=== PATIENT | female | born 1980 | race Caucasian/White ===

== ENCOUNTER 2016-12-08 08:03 | Emergency (ER) | payer MEDICAID ==
[~2016-12-08] VITALS: Ht 170.2 cm; Wt 77.1 kg
[~2016-12-08 08:03] MED LIST: ATEN-166
[2016-12-08 08:08] VITALS: BP_SYST 129
[2016-12-08] MEDS ORDERED: NACL 0.9% 1,000 ML IV ONE (08:28)
[2016-12-08] MEDS ORDERED: ONDANSETRON HCL 4 MG/2 ML VIAL IVP ONE (08:30)
[2016-12-08] MEDS ORDERED: MAG-AL HYDROX/SIMETH 30 ML UDC PO ONE (08:45)
[2016-12-08] MEDS ORDERED: BELLADONNA ALKALOIDS/PHENOBARB 5 ML UDC PO ONE (08:45)
[2016-12-08] MEDS ORDERED: LIDOCAINE VISCOUS 2%, 15 ML UDC MM ONE (08:45)
[2016-12-08 09:00] LABS: BASOPHILS % (AUTO) 0.6 % (0.0-2.0); EOSINOPHILS # (AUTO) 0.1 K/uL (0.0-0.4); EOSINOPHILS % (AUTO) 0.7 % (0.0-4.0); HEMATOCRIT 40.9 % (36-48); HEMOGLOBIN 13.5 g/dL (12.0-16.0); LYMPHOCYTES # (AUTO) 1.2 K/uL (1.0-5.5); LYMPHOCYTES % (AUTO) 16.2 % (20.5-51.5); MEAN CORPUSCULAR HEMOGLOBIN 31 pg (27-31); MEAN CORPUSCULAR HGB CONC 33 % (32-36); MEAN CORPUSCULAR VOLUME 94 fL (79.0-98.0); MONOCYTES # (AUTO) 0.5 K/uL (0.0-1.0); MONOCYTES % (AUTO) 6.3 % (1.7-9.3); NEUTROPHILS # (AUTO) 5.9 K/uL (1.8-7.7); NEUTROPHILS % (AUTO) 76.2 % (40.0-70.0); PLATELET COUNT (AUTO) 255 K/uL (130-430); RED BLOOD CELL COUNT(AUTO) 4.35 MIL/uL (4.2-6.2); RED CELL DISTRIBUTION WIDTH 11.7 % (9.0-15.0); WHITE BLOOD COUNT (AUTO) 7.7 K/uL (4.8-10.8)
[2016-12-08 09:09] LABS: CALCIUM 8.8 mg/dL (8.4-11.0); CREATININE 0.89 mg/dL (0.55-1.30); POTASSIUM 3.5 mmol/L (3.5-5.1)
[2016-12-08 09:13] LABS: BILIRUBIN,URINE 1+ (NEGATIVE); BLOOD, URINE 3+ (NEGATIVE); CLARITY/URINE HAZY (CLEAR); COLOR,URINE YELLOW (YELLOW); GLUCOSE,URINE NEGATIVE (NEGATIVE); KETONES,URINE TRACE (NEGATIVE); LEUKOCYTE ESTERASE ,URINE TRACE (NEGATIVE); NITRITE, URINE NEGATIVE (NEGATIVE); PH,URINE 5.5 (5.0-8.0); PROTEIN URINE TRACE (NEGATIVE); UROBILINOGEN,URINE 0.2 (0.2-1.0)
[2016-12-08 09:14] LABS: TOTAL BILIRUBIN 1.7 mg/dL (0.0-1.0)
[2016-12-08 09:26] LABS: BACTERIA,URINE MANY /HPF (None Seen); MUCUS,URINE 1+ /LPF (None Seen); RBC,URINE 20-50 /HPF (0-3)
[2016-12-08 10:04] VITALS: BP_SYST 121
== END 2016-12-08 10:04 | disposition home or self-care (01) ==
LOC: SED 08:03
DX: K52.9 Noninfective gastroenteritis and colitis, unspecified (principal); N39.0 Urinary tract infection, site not specified; I10 Essential (primary) hypertension; Z88.1 Allergy status to other antibiotic agents; Z88.6 Allergy status to analgesic agent
CPT/HCPCS: 36415; 80053; 81000; 81025; 83605; 83690; 85025; 87040; 87086; 93005; 96361; 96374; 99285; J2001; J2405; J7030

== ENCOUNTER 2017-01-12 20:06 | Emergency (ER) | payer MEDICAID ==
[~2017-01-12] VITALS: Ht 170.2 cm; Wt 81.6 kg
[2017-01-12 20:20] VITALS: BP_SYST 158
--- NOTE | 2017-01-12 20:34 | NUR ---
Patient to ER bed 8 to gown for evaluation. Side rails up. Report given to Ursula FOX.
--- NOTE | 2017-01-12 20:38 | NUR ---
ER HENRI Garces at bedside evaluating the patient
[2017-01-12] MEDS ORDERED: IBUPROFEN 800 MG TABLET PO ONE ×2 (20:45→21:00)
[2017-01-12] MEDS ORDERED: BACITRACIN 1 GM OINT TP ONE (20:45)
[2017-01-12] MEDS ORDERED: DIPH-TET-PERTUS Vaccine 0.5 ML VIAL (ADACEL) IM ONE (20:45)
[2017-01-12] MEDS ORDERED: LIDOCAINE 2%, 20 ML MDV IJ ONE (20:45)
--- NOTE | 2017-01-12 20:45 | NUR ---
Patient to ER C/O laceration for left hand 5th finger distal phalange and right hand 2nd finger middle phalange, aprox 1 cm both sites. No bleeding noted. 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 No other signs of injury or trauma. AAOx4, unlabored breathing, no signs of acute distress.
--- NOTE | 2017-01-12 21:46 | NUR ---
Patient has a 1cm laceration to left distal 5th finger and right hand 2nd finger 1cm laceration. OPTOMETRIST ASSISTANT Leah Pardo applied sutures using sterile technique. Edges well approximated. Site cleansed with NS & iodine. Dressing of gauze applied to site. No bleeding noted. Pt tolerated well.
[2017-01-12 22:21] VITALS: BP_SYST 131
--- NOTE | 2017-01-12 22:21 | NUR ---
Patient given written and verbal discharge instructions and verbalizes understanding. ER FORTUNE TELLER Edvin Garces discussed with patient the results and treatment provided. Patient in stable condition. ID arm band removed. Rx of bacitracin & motrin given. Patient educated on pain management and to follow up with PMD. Pain Scale 0/10. Opportunity for questions provided and answered.
== END 2017-01-12 22:21 | disposition home or self-care (01) ==
LOC: SED 20:06
DX: S61.217A Laceration without foreign body of left little finger without damage to nail, initial encounter (principal); S61.210A Laceration without foreign body of right index finger without damage to nail, initial encounter; I10 Essential (primary) hypertension; Z88.1 Allergy status to other antibiotic agents; Z88.5 Allergy status to narcotic agent; X58.XXXA Exposure to other specified factors, initial encounter; Y93.89 Activity, other specified; Y92.89 Other specified places as the place of occurrence of the external cause; Y99.8 Other external cause status
CPT/HCPCS: 12001; 90471; 90715; 99284; J2001

== ENCOUNTER 2017-03-07 17:17 | Emergency (ER) | payer MEDICAID ==
[~2017-03-07] VITALS: Ht 170.2 cm; Wt 83.9 kg
[~2017-03-07 17:17] MED LIST changes: +ASPI-1063 PO; -ATEN-166; +ATEN-166 PO; +DILT30TA36 PO
[2017-03-07 17:25] VITALS: BP_SYST 146
[2017-03-07 18:06] LABS: BILIRUBIN,URINE NEGATIVE (NEGATIVE); BLOOD, URINE NEGATIVE (NEGATIVE); CLARITY/URINE CLEAR (CLEAR); COLOR,URINE YELLOW (YELLOW); GLUCOSE,URINE NEGATIVE (NEGATIVE); KETONES,URINE NEGATIVE (NEGATIVE); LEUKOCYTE ESTERASE ,URINE NEGATIVE (NEGATIVE); NITRITE, URINE NEGATIVE (NEGATIVE); PH,URINE 5.5 (5.0-8.0); PROTEIN URINE NEGATIVE (NEGATIVE); UROBILINOGEN,URINE 0.2 (0.2-1.0)
[2017-03-07 18:29] LABS: BASOPHILS # (AUTO) 0.1 K/uL (0.0-0.2); BASOPHILS % (AUTO) 0.7 % (0.0-2.0); EOSINOPHILS # (AUTO) 0.1 K/uL (0.0-0.4); EOSINOPHILS % (AUTO) 0.7 % (0.0-4.0); HEMATOCRIT 41.8 % (36-48); LYMPHOCYTES # (AUTO) 1.4 K/uL (1.0-5.5); LYMPHOCYTES % (AUTO) 13.9 % (20.5-51.5); MEAN CORPUSCULAR HEMOGLOBIN 32 pg (27-31); MEAN CORPUSCULAR HGB CONC 34 % (32-36); MEAN CORPUSCULAR VOLUME 94 fL (79.0-98.0); MONOCYTES # (AUTO) 0.4 K/uL (0.0-1.0); MONOCYTES % (AUTO) 4.3 % (1.7-9.3); NEUTROPHILS # (AUTO) 8.1 K/uL (1.8-7.7); NEUTROPHILS % (AUTO) 80.4 % (40.0-70.0); PLATELET COUNT (AUTO) 268 K/uL (130-430); RED BLOOD CELL COUNT(AUTO) 4.46 MIL/uL (4.2-6.2); RED CELL DISTRIBUTION WIDTH 11.4 % (9.0-15.0); WHITE BLOOD COUNT (AUTO) 10.1 K/uL (4.8-10.8)
[2017-03-07 18:35] LABS: CALCIUM 10.1 mg/dL (8.4-11.0); CREATININE 0.8 mg/dL (0.55-1.30); POTASSIUM 3.5 mmol/L (3.5-5.1)
[2017-03-07 18:39] LABS: ALBUMIN 4.2 g/dL (3.4-4.8); TOTAL BILIRUBIN 0.9 mg/dL (0.0-1.0)
[2017-03-07] MEDS ORDERED: KETOROLAC TROMETHAMINE 60 MG/2 ML VIAL IM ONE (19:00)
[2017-03-07 20:35] VITALS: BP_SYST 143
== END 2017-03-07 20:35 | disposition home or self-care (01) ==
LOC: SED 17:17
DX: K57.90 Diverticulosis of intestine, part unspecified, without perforation or abscess without bleeding (principal); I10 Essential (primary) hypertension; Z88.1 Allergy status to other antibiotic agents; Z88.5 Allergy status to narcotic agent; Z86.79 Personal history of other diseases of the circulatory system; Z79.82 Long term (current) use of aspirin
CPT/HCPCS: 36415; 74176; 80053; 81003; 81025; 83690; 85025; 96372; 99285; J1885

== ENCOUNTER 2017-03-09 10:25 | Emergency (ER) | payer MEDICAID ==
[~2017-03-09] VITALS: Ht 170.2 cm; Wt 83.9 kg
[2017-03-09 10:32] VITALS: BP_SYST 149
--- NOTE | 2017-03-09 10:45 | NUR ---
PT AAOX4, ABLE TO VERBALIZE NEEDS. PT STATES SHE HAS HAD R LOWER PELVIC PAIN SINCE THURSDAY, CAME INTO ED ON THURSDAY AND WAS TOLD TO COME BACK IF PAIN GETS WORSE PER PT. PT STATES SHE WAS GIVEN MOTRIN PRESCRIPTION, HAS HELPED MINIMALLY WITH PAIN. PT STATES PAIN IS 7/10 SHARP, ACHING AT THIS TIME. PT STATES LAST PERIOD BEGAN 02/28/17 AND HAD SOME CLOTS, BUT NORMAL FOR HER PER PT. PT HAS HX OF ENDOMETRIOSIS. NO OTHER COMPLAINTS/INJURIES PER PT OR NOTED.
--- NOTE | 2017-03-09 10:55 | NUR ---
ER at bedside examining patient.
[2017-03-09] MEDS ORDERED: ONDANSETRON HCL 4 MG/2 ML VIAL IVP ONE (11:00)
[2017-03-09] MEDS ORDERED: MORPHINE SULFATE 10 MG/ML VIAL IVP ONE (11:00)
[2017-03-09 11:05] LABS: BASOPHILS # (AUTO) 0.1 K/uL (0.0-0.2); BASOPHILS % (AUTO) 0.7 % (0.0-2.0); EOSINOPHILS # (AUTO) 0.1 K/uL (0.0-0.4); EOSINOPHILS % (AUTO) 0.9 % (0.0-4.0); HEMATOCRIT 39.3 % (36-48); HEMOGLOBIN 13.5 g/dL (12.0-16.0); LYMPHOCYTES # (AUTO) 1.7 K/uL (1.0-5.5); LYMPHOCYTES % (AUTO) 22.5 % (20.5-51.5); MEAN CORPUSCULAR HEMOGLOBIN 32 pg (27-31); MEAN CORPUSCULAR HGB CONC 34 % (32-36); MEAN CORPUSCULAR VOLUME 93 fL (79.0-98.0); MONOCYTES # (AUTO) 0.5 K/uL (0.0-1.0); MONOCYTES % (AUTO) 6.4 % (1.7-9.3); NEUTROPHILS # (AUTO) 5.1 K/uL (1.8-7.7); NEUTROPHILS % (AUTO) 69.5 % (40.0-70.0); PLATELET COUNT (AUTO) 248 K/uL (130-430); RED BLOOD CELL COUNT(AUTO) 4.21 MIL/uL (4.2-6.2); RED CELL DISTRIBUTION WIDTH 11.3 % (9.0-15.0); WHITE BLOOD COUNT (AUTO) 7.5 K/uL (4.8-10.8)
[2017-03-09] MEDS: NACL 0.9% 1,000 ML IV ONE (11:15)
[2017-03-09] MEDS: KETOROLAC TROMETHAMINE 30 MG VIAL IVP ONE (11:16)
[2017-03-09 11:18] LABS: BILIRUBIN,URINE NEGATIVE (NEGATIVE); BLOOD, URINE NEGATIVE (NEGATIVE); CLARITY/URINE CLEAR (CLEAR); COLOR,URINE YELLOW (YELLOW); GLUCOSE,URINE NEGATIVE (NEGATIVE); KETONES,URINE NEGATIVE (NEGATIVE); LEUKOCYTE ESTERASE ,URINE NEGATIVE (NEGATIVE); NITRITE, URINE NEGATIVE (NEGATIVE); PH,URINE 5.5 (5.0-8.0); PROTEIN URINE NEGATIVE (NEGATIVE); UROBILINOGEN,URINE 0.2 (0.2-1.0)
[2017-03-09 11:22] LABS: CREATININE 0.79 mg/dL (0.55-1.30); POTASSIUM 3.6 mmol/L (3.5-5.1)
[2017-03-09 11:25] LABS: INR 1.1 (0.8-1.2); PROTHROMBIN TIME 10.7 SECS (9.5-12.5)
[2017-03-09 11:26] LABS: ALBUMIN 3.9 g/dL (3.4-4.8)
[2017-03-09] MEDS ORDERED: IOHEXOL 100 ML IV ONE (11:38)
--- NOTE | 2017-03-09 11:50 | NUR ---
PT TAKEN OFF UNIT FOR CT.
--- NOTE | 2017-03-09 12:36 | NUR ---
Pt resting comfortably in hospital bed. No acute distress. Will continue to monitor.
--- NOTE | 2017-03-09 13:36 | NUR ---
Pt went to ultrasound in stable condition.
--- NOTE | 2017-03-09 13:56 | NUR ---
Pt returned from ultrasound in stable condition.
--- NOTE | 2017-03-09 14:29 | NUR ---
Pt resting in hospital bed. No acute distress, will continue to monitor.
--- NOTE | 2017-03-09 15:25 | NUR ---
Patient given written and verbal discharge instructions and verbalizes understanding. ER MD discussed with patient the results and treatment provided. Patient in stable condition. ID arm band removed. IV catheter removed intact and dressing applied, no active bleeding. Rx of tramadol. tylenol, zofran given. Patient educated on pain management and to follow up with PMD. Pain Scale 0. Opportunity for questions provided and answered.
[2017-03-09 15:28] VITALS: BP_SYST 149
== END 2017-03-09 15:25 | disposition home or self-care (01) ==
LOC: SED 10:25
DX: R10.31 Right lower quadrant pain (principal); I10 Essential (primary) hypertension; Z86.79 Personal history of other diseases of the circulatory system; Z88.1 Allergy status to other antibiotic agents; Z88.5 Allergy status to narcotic agent; Z79.82 Long term (current) use of aspirin
CPT/HCPCS: 36415; 74177; 76830; 76857; 80053; 81003; 83690; 84703; 85025; 85610; 85730; 96361; 96374; 99285; J1885; J7030; Q9967

== ENCOUNTER 2018-02-23 08:09 | Emergency (ER) | payer MEDICAID ==
[~2018-02-23] VITALS: Ht 170.2 cm; Wt 83.9 kg
[~2018-02-23 08:09] MED LIST changes: -ASPI-1063 PO; +ASPI-1153 PO
[2018-02-23 08:12] VITALS: BP_SYST 153
[2018-02-23 09:07] VITALS: BP_SYST 153
== END 2018-02-23 09:07 | disposition home or self-care (01) ==
LOC: SED 08:09
DX: J06.9 Acute upper respiratory infection, unspecified (principal); I10 Essential (primary) hypertension; Z86.79 Personal history of other diseases of the circulatory system; Z88.1 Allergy status to other antibiotic agents; Z88.5 Allergy status to narcotic agent; Z79.82 Long term (current) use of aspirin; Z79.899 Other long term (current) drug therapy
CPT/HCPCS: 36415; 71045; 86710; 99284

== ENCOUNTER 2019-10-01 14:50 | Emergency (ER) | payer MEDICAID ==
[~2019-10-01] VITALS: Ht 167.6 cm; Wt 72.6 kg
[2019-10-01 14:55] VITALS: BP_SYST 153
--- NOTE | 2019-10-01 15:00 | NUR ---
Placed in room 3. Placed on nuclear monitoring technician, blood pressure machine and pulse oximeter. To gown for exam. Side rails up. Report given to RUDDY Gee.
--- NOTE | 2019-10-01 15:05 | NUR ---
Pt walked in to ER with c/o heart fluttering and chest tightness, denies any pain at this time. V/S stable, pt is afebrile. Currently resting in bed, will continue to monitor.
--- NOTE | 2019-10-01 15:10 | NUR ---
EKG performed at BS by EMT. Physician given copy of EKG for review.
--- NOTE | 2019-10-01 15:12 | NUR ---
ER Dr. Sevilla at bedside examining patient.
[2019-10-01] MEDS ORDERED: ASPIRIN 81 MG TAB.CHEW PO ONE (15:15)
--- NOTE | 2019-10-01 15:35 | NUR ---
# 20 gauge angiocath placed to LAC. Use of asceptic technique. Opsite placed over site. Blood return noted. Blood for lab drawn from site. Flushed with 10 cc of normal saline. No evidence of infiltration noted. Patient tolerated well.
[2019-10-01 15:46] LABS: BASOPHILS # (AUTO) 0.1 K/uL (0.0-0.2); HEMATOCRIT 41.6 % (36-48); LYMPHOCYTES % (AUTO) 9.2 % (20.5-51.5); MEAN CORPUSCULAR HEMOGLOBIN 31 pg (27-31); MEAN CORPUSCULAR HGB CONC 34 % (32-36); MEAN CORPUSCULAR VOLUME 93 fL (79.0-98.0); MONOCYTES # (AUTO) 0.2 K/uL (0.0-1.0); MONOCYTES % (AUTO) 2.2 % (1.7-9.3); NEUTROPHILS # (AUTO) 9.1 K/uL (1.8-7.7); NEUTROPHILS % (AUTO) 87.6 % (40.0-70.0); PLATELET COUNT (AUTO) 287 K/uL (130-430); RED BLOOD CELL COUNT(AUTO) 4.49 MIL/uL (4.2-6.2); RED CELL DISTRIBUTION WIDTH 12.1 % (9.0-15.0); WHITE BLOOD COUNT (AUTO) 10.3 K/uL (4.8-10.8)
[2019-10-01 15:59] LABS: CALCIUM 9.5 mg/dL (8.4-11.0); CREATININE 0.93 mg/dL (0.55-1.30)
[2019-10-01 16:05] LABS: ALBUMIN 3.8 g/dL (3.4-4.8); TOTAL BILIRUBIN 0.5 mg/dL (0.0-1.0)
[2019-10-01 16:30] VITALS: BP_SYST 153
--- NOTE | 2019-10-01 16:30 | NUR ---
Patient given written and verbal discharge instructions and verbalizes understanding. ER MD discussed with patient the results and treatment provided. Patient in stable condition. ID arm band removed. IV catheter removed intact and dressing applied, no active bleeding. No prescriptions given. Patient educated on pain management and to follow up with PMD. Pain Scale 0. Opportunity for questions provided and answered. Medication side effect fact sheet provided.
== END 2019-10-01 16:30 | disposition home or self-care (01) ==
LOC: SED 14:50
DX: R00.2 Palpitations (principal); I10 Essential (primary) hypertension; Z86.73 Personal history of transient ischemic attack (TIA), and cerebral infarction without residual deficits; Z79.899 Other long term (current) drug therapy; Z79.82 Long term (current) use of aspirin; Z88.1 Allergy status to other antibiotic agents; Z88.6 Allergy status to analgesic agent
CPT/HCPCS: 36415; 71045; 80053; 81025; 84484; 85025; 93005; 99285

== ENCOUNTER 2020-02-29 06:58 | Emergency (ER) | payer MEDICAID ==
[~2020-02-29] VITALS: Ht 167.6 cm; Wt 90.7 kg
[~2020-02-29 06:58] MED LIST changes: -ASPI-1153 PO; +ASPI-1393 PO
[2020-02-29 07:00] VITALS: BP_SYST 147
--- NOTE | 2020-02-29 07:00 | NUR ---
PT FOUND IN TRIAGE BATHROOM VOMITING, ASSISTED TO WHEELCHAIR AND BROUGHT BACK TO BED #7, PT STATES SHE AWOKE WITH RIGHT LOWER QUADRANT PAIN, +NAUSEA AND VOMITING, +DIARRHEA. PAIN IS WORSE THAN WHEN SHE HAD AN OVARIAN CYST. PT UNABLE TO WALK STRAIGHT UP, UNABLE TO SIT ON GURNEY. TRIAGED IN ROOM #7
--- NOTE | 2020-02-29 07:20 | NUR ---
REPORT GIVEN TO ISRAEL MARCUM REQUESTED AN BEDSIDE COMMODE TO ROOM, BEDSIDE COMMODE PLACED IN ROOM PER REQUEST.
--- NOTE | 2020-02-29 07:58 | NUR ---
Pt walked in to ER with c/o abdominal pain 11/18, n/v since early this morning. No fever at this time. V/S stable.
--- NOTE | 2020-02-29 08:10 | NUR ---
ER Dr. Florez at bedside examining patient.
[2020-02-29] MEDS ORDERED: NACL 0.9% 1,000 ML IV ONE (08:15)
[2020-02-29] MEDS ORDERED: KETOROLAC TROMETHAMINE 30 MG VIAL IVP ONE (08:15)
--- NOTE | 2020-02-29 08:15 | NUR ---
# 20 gauge angiocath placed to RAC. Use of asceptic technique. Opsite placed over site. Blood return noted. Blood for lab drawn from site. Flushed with 10 cc of normal saline. No evidence of infiltration noted. Patient tolerated well.
[2020-02-29] MEDS ORDERED: ONDANSETRON HCL 4 MG/2 ML VIAL ONE (08:19)
[2020-02-29 08:28] LABS: BASOPHILS # (AUTO) 0.1 K/uL (0.0-0.2); BASOPHILS % (AUTO) 0.7 % (0.0-2.0); EOSINOPHILS % (AUTO) 0.4 % (0.0-4.0); HEMATOCRIT 38.7 % (36-48); LYMPHOCYTES # (AUTO) 1.5 K/uL (1.0-5.5); LYMPHOCYTES % (AUTO) 13.1 % (20.5-51.5); MEAN CORPUSCULAR HEMOGLOBIN 31 pg (27-31); MEAN CORPUSCULAR HGB CONC 34 % (32-36); MEAN CORPUSCULAR VOLUME 92 fL (79.0-98.0); MONOCYTES # (AUTO) 0.4 K/uL (0.0-1.0); MONOCYTES % (AUTO) 3.7 % (1.7-9.3); NEUTROPHILS # (AUTO) 9.5 K/uL (1.8-7.7); NEUTROPHILS % (AUTO) 82.1 % (40.0-70.0); PLATELET COUNT (AUTO) 263 K/uL (130-430); RED BLOOD CELL COUNT(AUTO) 4.18 MIL/uL (4.2-6.2); RED CELL DISTRIBUTION WIDTH 12.5 % (9.0-15.0); WHITE BLOOD COUNT (AUTO) 11.6 K/uL (4.8-10.8)
[2020-02-29] MEDS ORDERED: ONDANSETRON HCL 4 MG/2 ML VIAL IVP ONE ×2 (08:30→10:15)
[2020-02-29 08:38] LABS: CALCIUM 8.8 mg/dL (8.4-11.0); CREATININE 0.86 mg/dL (0.55-1.30); POTASSIUM 3.5 mmol/L (3.5-5.1)
--- NOTE | 2020-02-29 08:41 | NUR ---
Patient transported to radiology via wheelchair, accompanied by staff.
[2020-02-29 08:42] LABS: ALBUMIN 3.7 g/dL (3.4-4.8); TOTAL BILIRUBIN 0.6 mg/dL (0.0-1.0)
[2020-02-29] MEDS ORDERED: traMADol HCL HCL 50 MG TABLET (ULTRAM) PO ONE (10:15)
[2020-02-29] MEDS ORDERED: traMADol HCL HCL 50 MG TABLET (ULTRAM) ONE (10:15)
[2020-02-29 10:41] VITALS: BP_SYST 147
--- NOTE | 2020-02-29 10:42 | NUR ---
Patient given written and verbal discharge instructions and verbalizes understanding. ER MD discussed with patient the results and treatment provided. Patient in stable condition. ID arm band removed. IV catheter removed intact and dressing applied, no active bleeding. Rx of Motrin, Zofran and Tramadol given. Patient educated on pain management and to follow up with PMD. Pain Scale 0. Opportunity for questions provided and answered. Medication side effect fact sheet provided.
== END 2020-02-29 10:42 | disposition home or self-care (01) ==
LOC: SED 06:58
DX: N23 Unspecified renal colic (principal); I10 Essential (primary) hypertension; Z86.73 Personal history of transient ischemic attack (TIA), and cerebral infarction without residual deficits; Z79.899 Other long term (current) drug therapy; Z79.82 Long term (current) use of aspirin; Z88.1 Allergy status to other antibiotic agents; Z88.6 Allergy status to analgesic agent
CPT/HCPCS: 36415; 74176; 76376; 83690; 80053; 85025; 96361; 96374; 96375; 96376; 99284; J1885; J2405; J7030

== ENCOUNTER 2020-05-05 22:43 | Emergency (ER) | payer MEDICAID ==
[~2020-05-05] VITALS: Ht 170.2 cm; Wt 90.7 kg
[2020-05-05 22:50] VITALS: BP_SYST 157
[2020-05-06 00:02] LABS: BASOPHILS # (AUTO) 0.1 K/uL (0.0-0.2); BASOPHILS % (AUTO) 0.8 % (0.0-2.0); EOSINOPHILS # (AUTO) 0.2 K/uL (0.0-0.4); EOSINOPHILS % (AUTO) 2.6 % (0.0-4.0); HEMATOCRIT 38.5 % (36-48); HEMOGLOBIN 12.9 g/dL (12.0-16.0); LYMPHOCYTES # (AUTO) 2.5 K/uL (1.0-5.5); LYMPHOCYTES % (AUTO) 29.7 % (20.5-51.5); MEAN CORPUSCULAR HEMOGLOBIN 31 pg (27-31); MEAN CORPUSCULAR HGB CONC 34 % (32-36); MEAN CORPUSCULAR VOLUME 92 fL (79.0-98.0); MONOCYTES # (AUTO) 0.7 K/uL (0.0-1.0); MONOCYTES % (AUTO) 8.4 % (1.7-9.3); NEUTROPHILS # (AUTO) 4.9 K/uL (1.8-7.7); NEUTROPHILS % (AUTO) 58.5 % (40.0-70.0); PLATELET COUNT (AUTO) 233 K/uL (130-430); RED BLOOD CELL COUNT(AUTO) 4.18 MIL/uL (4.2-6.2); RED CELL DISTRIBUTION WIDTH 12.1 % (9.0-15.0); WHITE BLOOD COUNT (AUTO) 8.3 K/uL (4.8-10.8)
[2020-05-06 00:19] LABS: CALCIUM 8.8 mg/dL (8.4-11.0); CREATININE 0.94 mg/dL (0.55-1.30); POTASSIUM 3.1 mmol/L (3.5-5.1)
[2020-05-06 00:24] LABS: ALBUMIN 3.7 g/dL (3.4-4.8); TOTAL BILIRUBIN 0.5 mg/dL (0.0-1.0)
[2020-05-06] MEDS ORDERED: POTASSIUM CHLORIDE 20 MEQ TAB.PRT.SR PO ONE (00:45)
[2020-05-06] MEDS ORDERED: LORazepam 2 MG/ML VIAL IM ONE (02:30)
[2020-05-06 02:42] VITALS: BP_SYST 156
== END 2020-05-06 02:43 | disposition home or self-care (01) ==
LOC: SED 22:43
DX: R20.2 Paresthesia of skin (principal); E87.6 Hypokalemia; I10 Essential (primary) hypertension; N28.9 Disorder of kidney and ureter, unspecified; Z79.899 Other long term (current) drug therapy; Z79.82 Long term (current) use of aspirin; Z88.6 Allergy status to analgesic agent; Z88.1 Allergy status to other antibiotic agents
CPT/HCPCS: 36415; 71045; 80053; 84484; 85025; 93005; 99285

== ENCOUNTER 2020-08-10 20:51 | Emergency (ER) | payer MEDICAID ==
[~2020-08-10] VITALS: Ht 165.1 cm; Wt 93.0 kg
--- NOTE | 2020-08-10 20:58 | NUR ---
Placed in room 02 . Placed on pvc monitor, blood pressure machine and pulse oximeter. To gown for exam. Side rails up.
[2020-08-10 20:59] VITALS: BP_SYST 161
--- NOTE | 2020-08-10 21:10 | NUR ---
Pt walked in from home c/o 05/19 intermittent mid sternal chest pain that started since thursday. Pt reports some SOB, dizziness, feeling symptoms of anxiety. Was told to come into ER by her groundman/lineman.
--- NOTE | 2020-08-10 21:20 | NUR ---
Dr. Su at bedside for MSE.
[2020-08-10 21:39] LABS: BASOPHILS % (AUTO) 0.4 % (0.0-2.0); EOSINOPHILS # (AUTO) 0.1 K/uL (0.0-0.4); EOSINOPHILS % (AUTO) 0.8 % (0.0-4.0); HEMATOCRIT 37.3 % (36-48); HEMOGLOBIN 12.5 g/dL (12.0-16.0); LYMPHOCYTES # (AUTO) 3.1 K/uL (1.0-5.5); LYMPHOCYTES % (AUTO) 26.6 % (20.5-51.5); MEAN CORPUSCULAR HEMOGLOBIN 31 pg (27-31); MEAN CORPUSCULAR HGB CONC 34 % (32-36); MEAN CORPUSCULAR VOLUME 92 fL (79.0-98.0); MONOCYTES # (AUTO) 0.9 K/uL (0.0-1.0); MONOCYTES % (AUTO) 7.3 % (1.7-9.3); NEUTROPHILS # (AUTO) 7.6 K/uL (1.8-7.7); NEUTROPHILS % (AUTO) 64.9 % (40.0-70.0); PLATELET COUNT (AUTO) 254 K/uL (130-430); RED BLOOD CELL COUNT(AUTO) 4.06 MIL/uL (4.2-6.2); RED CELL DISTRIBUTION WIDTH 12.1 % (9.0-15.0); WHITE BLOOD COUNT (AUTO) 11.7 K/uL (4.8-10.8)
[2020-08-10 21:44] LABS: CALCIUM 8.9 mg/dL (8.4-11.0); CREATININE 0.97 mg/dL (0.55-1.30); POTASSIUM 3.3 mmol/L (3.5-5.1)
[2020-08-10] MEDS ORDERED: METOPROLOL TARTRATE 5 MG/5 ML VIAL IVP ONE ×2 (21:45→22:15)
[2020-08-10 21:50] LABS: ALBUMIN 3.5 g/dL (3.4-4.8); TOTAL BILIRUBIN 0.5 mg/dL (0.0-1.0)
[2020-08-10] MEDS ORDERED: ONDANSETRON HCL 4 MG/2 ML VIAL ONE (22:27)
[2020-08-10] MEDS ORDERED: ONDANSETRON HCL 4 MG/2 ML VIAL IVP ONE (22:30)
--- NOTE | 2020-08-10 22:45 | NUR ---
Patient resting quietly. No acute distress noted.
[2020-08-10] MEDS ORDERED: POTASSIUM CHLORIDE 20 MEQ TAB.PRT.SR PO ONE (23:00)
[2020-08-10] MEDS ORDERED: NACL 0.9% 1,000 ML IV ONE (23:00)
[2020-08-10] MEDS ORDERED: POTASSIUM CHLORIDE 20 MEQ TAB.PRT.SR ONE (23:18)
[2020-08-10] MEDS ORDERED: METO25TA6 PO (23:52)
[2020-08-11] MEDS ORDERED: METO25TA6 PO ×2
--- NOTE | 2020-08-11 | NUR ---
Patient resting quietly. No acute distress noted. Vital signs within normal range.
[2020-08-11] MEDS ORDERED: METOPROLOL TARTRATE 25 MG TABLET PO ONE (00:30)
[2020-08-11 01:20] VITALS: BP_SYST 132
--- NOTE | 2020-08-11 01:20 | NUR ---
Patient given written and verbal discharge instructions and verbalizes understanding. ER MD discussed with patient the results and treatment provided. Patient in stable condition. ID arm band removed. IV catheter removed intact and dressing applied, no active bleeding. Rx of LOPRESSOR given. Patient educated on pain management and to follow up with PMD. Pain Scale 0/10. Opportunity for questions provided and answered. Medication side effect fact sheet provided.
== END 2020-08-11 01:20 | disposition home or self-care (01) ==
LOC: SED 20:51
DX: R00.2 Palpitations (principal); I10 Essential (primary) hypertension; Z88.1 Allergy status to other antibiotic agents; Z88.5 Allergy status to narcotic agent; Z79.899 Other long term (current) drug therapy; Z79.82 Long term (current) use of aspirin
CPT/HCPCS: 36415; 71045; 80053; 83880; 84484; 85025; 93005; 96361; 96374; 96375; 99285; J2405; J3490; J7030

== ENCOUNTER 2020-08-16 13:32 | Emergency (ER) | payer MEDICAID ==
[~2020-08-16] VITALS: Ht 162.6 cm; Wt 78.5 kg
[~2020-08-16 13:32] MED LIST changes: +METO25TA6 PO
--- NOTE | 2020-08-16 13:35 | NUR ---
SMITH Farrell at bedside examining patient.
[2020-08-16 13:37] VITALS: BP_SYST 140
--- NOTE | 2020-08-16 14:19 | NUR ---
PT OBSERVED TO BE COMFORTABLE, DENIES CHEST DISCOMFORT, PT CHATTY, WHILE HOLDING AND CHECKING MESSAGES ON HER CELL PHONE.
--- NOTE | 2020-08-16 14:50 | NUR ---
DR URENA SPEAKING TO THE PATIENT.
[2020-08-16] MEDS ORDERED: OMEP20TA20 PO (15:23)
[2020-08-16] MEDS ORDERED: ONDA4TAB5 PO (15:23)
[2020-08-16] MEDS ORDERED: IBUP-1971 PO (15:23)
[2020-08-16] MEDS ORDERED: HYDR-500 PO (15:23)
--- NOTE | 2020-08-16 15:37 | NUR ---
Patient given written and verbal discharge instructions and verbalizes understanding. ER MD DR URENA discussed with patient the results and treatment provided. Patient in stable condition. ID arm band removed. Rx of HYDROXYZINE, IBUPROFEN, OMEPRAZOLE, ONDANSETRON given. Patient educated on pain management and to follow up with PMD. Pain Scale 0. Opportunity for questions provided and answered. Medication side effect fact sheet provided.
[2020-08-16 15:38] VITALS: BP_SYST 130
== END 2020-08-16 15:37 | disposition home or self-care (01) ==
LOC: SED 13:32
DX: R07.2 Precordial pain (principal); I10 Essential (primary) hypertension; Z88.1 Allergy status to other antibiotic agents; Z88.5 Allergy status to narcotic agent; Z79.899 Other long term (current) drug therapy
CPT/HCPCS: 93005; 99283

== ENCOUNTER 2020-08-24 03:16 | Emergency (ER) | payer MEDICAID ==
[~2020-08-24] VITALS: Ht 170.2 cm; Wt 90.7 kg
[~2020-08-24 03:16] MED LIST changes: +HYDR-500 PO; +IBUP-1971 PO; +OMEP20TA20 PO; +ONDA4TAB5 PO
[2020-08-24 03:45] VITALS: BP_SYST 153
[2020-08-24] MEDS ORDERED: PROCHLORPERAZINE EDISYLATE 10 MG/2 ML VIAL IVP ONE (05:15)
[2020-08-24] MEDS ORDERED: NACL 0.9% 1,000 ML IV ONE (05:15)
[2020-08-24] MEDS ORDERED: DIPHENHYDRAMINE INJ 50 MG/ML VIAL IVP ONE (05:15)
[2020-08-24] MEDS ORDERED: PANTOPRAZOLE SODIUM 40 MG/VIAL (PROTONIX) IVP ONE (05:15)
[2020-08-24 06:31] LABS: CALCIUM 8.7 mg/dL (8.4-11.0); CREATININE 0.89 mg/dL (0.55-1.30); POTASSIUM 3.6 mmol/L (3.5-5.1)
[2020-08-24 06:34] LABS: BASOPHILS # (AUTO) 0.1 K/uL (0.0-0.2); BASOPHILS % (AUTO) 0.6 % (0.0-2.0); EOSINOPHILS % (AUTO) 0.3 % (0.0-4.0); HEMATOCRIT 37.8 % (36-48); HEMOGLOBIN 12.7 g/dL (12.0-16.0); LYMPHOCYTES # (AUTO) 1.8 K/uL (1.0-5.5); LYMPHOCYTES % (AUTO) 15.6 % (20.5-51.5); MEAN CORPUSCULAR HEMOGLOBIN 31 pg (27-31); MEAN CORPUSCULAR HGB CONC 34 % (32-36); MEAN CORPUSCULAR VOLUME 93 fL (79.0-98.0); MONOCYTES # (AUTO) 0.7 K/uL (0.0-1.0); MONOCYTES % (AUTO) 5.7 % (1.7-9.3); NEUTROPHILS # (AUTO) 8.9 K/uL (1.8-7.7); NEUTROPHILS % (AUTO) 77.8 % (40.0-70.0); PLATELET COUNT (AUTO) 250 K/uL (130-430); RED BLOOD CELL COUNT(AUTO) 4.08 MIL/uL (4.2-6.2); RED CELL DISTRIBUTION WIDTH 12.6 % (9.0-15.0); WHITE BLOOD COUNT (AUTO) 11.5 K/uL (4.8-10.8)
[2020-08-24 06:35] LABS: BILIRUBIN,URINE NEGATIVE (NEGATIVE); BLOOD, URINE 3+ (NEGATIVE); CLARITY/URINE TURBID (CLEAR); COLOR,URINE YELLOW (YELLOW); GLUCOSE,URINE NEGATIVE (NEGATIVE); KETONES,URINE TRACE (NEGATIVE); LEUKOCYTE ESTERASE ,URINE NEGATIVE (NEGATIVE); NITRITE, URINE NEGATIVE (NEGATIVE); PROTEIN URINE TRACE (NEGATIVE); UROBILINOGEN,URINE 0.2 (0.2-1.0)
[2020-08-24 06:46] LABS: ALBUMIN 3.7 g/dL (3.4-4.8); TOTAL BILIRUBIN 0.9 mg/dL (0.0-1.0)
[2020-08-24] MEDS ORDERED: ONDA-8 TL (07:19)
[2020-08-24 07:27] LABS: BACTERIA,URINE MODERATE /HPF (None Seen); WBC,URINE 0-3 /HPF (0-3)
[2020-08-24 07:53] VITALS: BP_SYST 153
== END 2020-08-24 07:54 | disposition home or self-care (01) ==
LOC: SED 03:16
DX: R11.10 Vomiting, unspecified (principal); T43.225A Adverse effect of selective serotonin reuptake inhibitors, initial encounter; I10 Essential (primary) hypertension; Y92.89 Other specified places as the place of occurrence of the external cause
CPT/HCPCS: 36415; 80053; 81000; 83690; 85025; 87086; 96361; 96374; 96375; 99284; C9113; J0780; J1200; J7030

== ENCOUNTER 2020-10-24 09:21 | Emergency (ER) | payer MEDICAID ==
[~2020-10-24] VITALS: Ht 170.2 cm; Wt 93.0 kg
[2020-10-24 09:21] VITALS: BP_SYST 137
[~2020-10-24 09:21] MED LIST changes: +ONDA-8 TL
--- NOTE | 2020-10-24 09:21 | NUR ---
BROUGHT BACK TO BED #7, TRIAGED. REPORT GIVEN TO CHIQUI
--- NOTE | 2020-10-24 09:30 | NUR ---
Patient to ER bed 07 to gown for evaluation. Side rails up.
--- NOTE | 2020-10-24 09:32 | NUR ---
Pt brought by self, ambulatory, A&Ox4, pt presents to ER with R lower abdominal pain radiating to R leg , pt also c/o N/V/D, skin pink and warm, cap refill <3, pt denies bleeding, will cont to monitor.
--- NOTE | 2020-10-24 09:50 | NUR ---
DR GO AT BEDSIDE FOR EVALUATION
[2020-10-24] MEDS ORDERED: NACL 0.9% 1,000 ML IV ONE (10:00)
[2020-10-24] MEDS ORDERED: KETOROLAC TROMETHAMINE 30 MG VIAL IVP ONE (10:00)
[2020-10-24 10:18] LABS: BILIRUBIN,URINE NEGATIVE (NEGATIVE); BLOOD, URINE 3+ (NEGATIVE); CLARITY/URINE CLOUDY (CLEAR); COLOR,URINE YELLOW (YELLOW); GLUCOSE,URINE NEGATIVE (NEGATIVE); KETONES,URINE NEGATIVE (NEGATIVE); LEUKOCYTE ESTERASE ,URINE TRACE (NEGATIVE); NITRITE, URINE NEGATIVE (NEGATIVE); PH,URINE 5.5 (5.0-8.0); PROTEIN URINE TRACE (NEGATIVE); UROBILINOGEN,URINE 0.2 (0.2-1.0)
[2020-10-24 10:31] LABS: BACTERIA,URINE MODERATE /HPF (None Seen); MUCUS,URINE 1+ /LPF (None Seen)
[2020-10-24 10:35] LABS: BASOPHILS % (AUTO) 0.7 % (0.0-2.0); EOSINOPHILS # (AUTO) 0.1 K/uL (0.0-0.4); EOSINOPHILS % (AUTO) 1.6 % (0.0-4.0); HEMATOCRIT 37.6 % (36-48); HEMOGLOBIN 12.7 g/dL (12.0-16.0); LYMPHOCYTES # (AUTO) 1.6 K/uL (1.0-5.5); LYMPHOCYTES % (AUTO) 23.9 % (20.5-51.5); MEAN CORPUSCULAR HEMOGLOBIN 31 pg (27-31); MEAN CORPUSCULAR HGB CONC 34 % (32-36); MEAN CORPUSCULAR VOLUME 92 fL (79.0-98.0); MONOCYTES # (AUTO) 0.5 K/uL (0.0-1.0); MONOCYTES % (AUTO) 7.7 % (1.7-9.3); NEUTROPHILS # (AUTO) 4.5 K/uL (1.8-7.7); NEUTROPHILS % (AUTO) 66.1 % (40.0-70.0); PLATELET COUNT (AUTO) 237 K/uL (130-430); RED BLOOD CELL COUNT(AUTO) 4.07 MIL/uL (4.2-6.2); WHITE BLOOD COUNT (AUTO) 6.8 K/uL (4.8-10.8)
--- NOTE | 2020-10-24 10:40 | NUR ---
Pt A&Ox4, VSS, respirations even and unlabored.
[2020-10-24 10:58] LABS: ANION GAP 6 (5-15); CALCIUM 8.8 mg/dL (8.4-11.0); CHLORIDE 106 mmol/L (98-107); GLUCOSE 94 mg/dL (70-99); POTASSIUM 3.7 mmol/L (3.5-5.1); SODIUM SERUM 140 mmol/L (136-145); UREA NITROGEN, BLOOD 15 mg/dL (8-21)
[2020-10-24 11:05] LABS: GFR AFRICAN AMERICAN 102 mL/min (>90)
[2020-10-24 11:07] LABS: ALANINE AMINOTRANSFERASE 18 U/L (12-78); ALBUMIN 3.6 g/dL (3.4-4.8); ASPARTATE AMINOTRANSFERASE 15 U/L (10-37); LIPASE 112 U/L (73-393); TOTAL BILIRUBIN 0.8 mg/dL (0.0-1.0)
[2020-10-24] MEDS ORDERED: IBUP-1969 PO (12:33)
--- NOTE | 2020-10-24 12:55 | NUR ---
Patient given written and verbal discharge instructions and verbalizes understanding. ER MD discussed with patient the results and treatment provided. Patient in stable condition. ID arm band removed. IV catheter removed intact and dressing applied, no active bleeding. Rx of IBUPROFEN given. Patient educated on pain management and to follow up with PMD. Pain Scale 1/10. Opportunity for questions provided and answered. Medication side effect fact sheet provided.
== END 2020-10-24 12:55 | disposition home or self-care (01) ==
LOC: SED 09:21
DX: R10.31 Right lower quadrant pain (principal); I10 Essential (primary) hypertension; Z88.1 Allergy status to other antibiotic agents; Z79.899 Other long term (current) drug therapy
CPT/HCPCS: 36415; 74176; 76376; 80053; 81000; 81025; 83690; 84484; 85025; 87086; 93005; 96361; 96374; 99285; J1885; J7030

== ENCOUNTER 2020-11-19 15:34 | Emergency (ER) | payer MEDICAID, SELFPAY ==
[~2020-11-19] VITALS: Ht 170.2 cm; Wt 90.7 kg
[~2020-11-19 15:34] MED LIST changes: +IBUP-1969 PO
[2020-11-19 15:50] VITALS: BP_SYST 144
[2020-11-19] MEDS ORDERED: LevALBUTEROL HCL 1.25 MG/0.5 ML *CONC.* VIAL.NEB (XOPENEX CONC.) INH ONE (16:45)
[2020-11-19 17:18] LABS: BASOPHILS # (AUTO) 0.1 K/uL (0.0-0.2); BASOPHILS % (AUTO) 0.7 % (0.0-2.0); EOSINOPHILS # (AUTO) 0.1 K/uL (0.0-0.4); EOSINOPHILS % (AUTO) 0.7 % (0.0-4.0); HEMATOCRIT 37.2 % (36-48); HEMOGLOBIN 12.8 g/dL (12.0-16.0); LYMPHOCYTES # (AUTO) 2.1 K/uL (1.0-5.5); LYMPHOCYTES % (AUTO) 21.5 % (20.5-51.5); MEAN CORPUSCULAR HEMOGLOBIN 32 pg (27-31); MEAN CORPUSCULAR HGB CONC 34 % (32-36); MEAN CORPUSCULAR VOLUME 92 fL (79.0-98.0); MONOCYTES # (AUTO) 0.6 K/uL (0.0-1.0); MONOCYTES % (AUTO) 6.1 % (1.7-9.3); NEUTROPHILS # (AUTO) 7.1 K/uL (1.8-7.7); PLATELET COUNT (AUTO) 243 K/uL (130-430); RED BLOOD CELL COUNT(AUTO) 4.04 MIL/uL (4.2-6.2); RED CELL DISTRIBUTION WIDTH 11.9 % (9.0-15.0)
[2020-11-19] MEDS ORDERED: ONDANSETRON HCL 4 MG/2 ML VIAL IVP ONE ×2 (18:00→19:15)
[2020-11-19 18:09] LABS: CALCIUM 9.3 mg/dL (8.4-11.0); CREATININE 0.8 mg/dL (0.55-1.30); POTASSIUM 3.5 mmol/L (3.5-5.1)
[2020-11-19 18:13] LABS: PROTHROMBIN TIME 10.3 SECS (9.5-12.5)
[2020-11-19 18:13] LABS: BILIRUBIN,URINE NEGATIVE (NEGATIVE); CLARITY/URINE CLEAR (CLEAR); COLOR,URINE YELLOW (YELLOW); GLUCOSE,URINE NEGATIVE (NEGATIVE); KETONES,URINE NEGATIVE (NEGATIVE); LEUKOCYTE ESTERASE ,URINE NEGATIVE (NEGATIVE); NITRITE, URINE NEGATIVE (NEGATIVE); PROTEIN URINE NEGATIVE (NEGATIVE); UROBILINOGEN,URINE 0.2 (0.2-1.0)
[2020-11-19 18:15] LABS: ALBUMIN 3.6 g/dL (3.4-4.8); TOTAL BILIRUBIN 0.6 mg/dL (0.0-1.0)
[2020-11-19 18:38] LABS: BLOOD, URINE TRACE (NEGATIVE)
[2020-11-19] MEDS ORDERED: KETOROLAC TROMETHAMINE 15 MG VIAL IVP ONE (19:15)
[2020-11-19] MEDS ORDERED: ALBMDI INH (19:20)
[2020-11-19] MEDS ORDERED: ONDA-8 TL (19:20)
[2020-11-19 19:23] LABS: BACTERIA,URINE RARE /HPF (None Seen); MUCUS,URINE 1+ /LPF (None Seen); RBC,URINE 0-3 /HPF (0-3); WBC,URINE 0-3 /HPF (0-3)
[2020-11-19 21:10] VITALS: BP_SYST 136
== END 2020-11-19 21:10 | disposition home or self-care (01) ==
LOC: SED 15:34
DX: R06.02 Shortness of breath (principal); I10 Essential (primary) hypertension; Z79.899 Other long term (current) drug therapy; Z88.1 Allergy status to other antibiotic agents; Z88.5 Allergy status to narcotic agent; Z20.822 Contact with and (suspected) exposure to COVID-19
CPT/HCPCS: 36415; 71045; 80053; 81000; 83880; 84484; 85025; 85379; 85610; 85730; 87426; 93005; 94640; 96374; 96375; 96376; 99285; J1885; J2405; J7612

== ENCOUNTER 2021-07-02 08:30 | Emergency (ER) | payer MEDICAID ==
[~2021-07-02] VITALS: Ht 172.7 cm; Wt 81.6 kg
[~2021-07-02 08:30] MED LIST changes: +ALBMDI INH
[2021-07-02 08:38] VITALS: BP_SYST 126
[2021-07-02 09:13] LABS: BASOPHILS # (AUTO) 0.1 K/uL (0.0-0.2); BASOPHILS % (AUTO) 0.7 % (0.0-2.0); EOSINOPHILS # (AUTO) 0.1 K/uL (0.0-0.4); EOSINOPHILS % (AUTO) 0.9 % (0.0-4.0); HEMATOCRIT 36.9 % (36-48); HEMOGLOBIN 12.6 g/dL (12.0-16.0); LYMPHOCYTES # (AUTO) 1.9 K/uL (1.0-5.5); LYMPHOCYTES % (AUTO) 24.2 % (20.5-51.5); MEAN CORPUSCULAR HEMOGLOBIN 31 pg (27-31); MEAN CORPUSCULAR HGB CONC 34 % (32-36); MEAN CORPUSCULAR VOLUME 90 fL (79.0-98.0); MONOCYTES # (AUTO) 0.7 K/uL (0.0-1.0); MONOCYTES % (AUTO) 8.7 % (1.7-9.3); NEUTROPHILS # (AUTO) 5.2 K/uL (1.8-7.7); NEUTROPHILS % (AUTO) 65.5 % (40.0-70.0); PLATELET COUNT (AUTO) 237 K/uL (130-430); RED BLOOD CELL COUNT(AUTO) 4.09 MIL/uL (4.2-6.2); RED CELL DISTRIBUTION WIDTH 12.2 % (9.0-15.0); WHITE BLOOD COUNT (AUTO) 7.9 K/uL (4.8-10.8)
[2021-07-02 09:29] LABS: ANION GAP 6 (5-15); CALCIUM 8.3 mg/dL (8.4-11.0); CHLORIDE 104 mmol/L (98-107); CREATININE 0.77 mg/dL (0.55-1.30); GLUCOSE 97 mg/dL (70-99); POTASSIUM 3.9 mmol/L (3.5-5.1); SODIUM SERUM 137 mmol/L (136-145); UREA NITROGEN, BLOOD 9 mg/dL (8-21)
[2021-07-02 09:31] LABS: GFR AFRICAN AMERICAN 106 mL/min (>90)
[2021-07-02 09:37] LABS: ALANINE AMINOTRANSFERASE 19 U/L (12-78); ALBUMIN 3.3 g/dL (3.4-4.8); ASPARTATE AMINOTRANSFERASE 17 U/L (10-37); LIPASE 118 U/L (73-393); TOTAL BILIRUBIN 0.4 mg/dL (0.0-1.0)
[2021-07-02] MEDS ORDERED: LOM2.5 PO (10:01)
[2021-07-02] MEDS ORDERED: NAPR-688 PO ×2 (10:01)
[2021-07-02] MEDS ORDERED: IBUP-1969 PO (10:12)
[2021-07-02 10:27] VITALS: BP_SYST 126
== END 2021-07-02 10:25 | disposition home or self-care (01) ==
LOC: SED 08:30
DX: B34.9 Viral infection, unspecified (principal); I10 Essential (primary) hypertension; Z88.1 Allergy status to other antibiotic agents; Z88.5 Allergy status to narcotic agent; Z79.899 Other long term (current) drug therapy
CPT/HCPCS: 36415; 71045; 80053; 81025; 83690; 84484; 85025; 93005; 99285

== ENCOUNTER 2022-01-24 15:53 | Emergency (ER) | payer MEDICAID ==
[~2022-01-24] VITALS: Ht 170.2 cm; Wt 97.5 kg
[~2022-01-24 15:53] MED LIST changes: +LOM2.5 PO
[2022-01-24 16:00] VITALS: BP_SYST 142
--- NOTE | 2022-01-24 16:11 | NUR ---
Patient triaged and placed in waiting room. VSS and patient appears in no acute distress at this time. Accompanied by SELF, awaiting available bed, and MD notified of need for MSE.
--- NOTE | 2022-01-24 16:47 | NUR ---
covid positive per lab.
--- NOTE | 2022-01-24 17:00 | NUR ---
Patient to ER bed TRIAGE to gown for evaluation. Side rails up.
--- NOTE | 2022-01-24 17:10 | NUR ---
ER at bedside examining patient.
[2022-01-24] MEDS ORDERED: BENZ100C92 PO (18:22)
[2022-01-24] MEDS ORDERED: MED4 PO (18:22)
[2022-01-24] MEDS ORDERED: ALBMDI INH (18:28)
[2022-01-24] MEDS ORDERED: ALBU2.5V7 INH (18:28)
[2022-01-24] MEDS ORDERED: ONDA-8 TL (18:28)
--- NOTE | 2022-01-24 18:28 | NUR ---
Patient given written and verbal discharge instructions and verbalizes understanding. ER MD discussed with patient the results and treatment provided. Patient in stable condition. ID arm band removed. NO Rx of given. Patient educated on pain management and to follow up with PMD. Pain Scale 0. Opportunity for questions provided and answered. Medication side effect fact sheet provided.
== END 2022-01-24 18:28 | disposition home or self-care (01) ==
LOC: SED 15:53
DX: U07.1 COVID-19 (principal); R05.9 Cough, unspecified; R09.81 Nasal congestion; R07.89 Other chest pain; I11.0 Hypertensive heart disease with heart failure; I50.9 Heart failure, unspecified; Z88.1 Allergy status to other antibiotic agents; Z88.5 Allergy status to narcotic agent; Z79.899 Other long term (current) drug therapy
CPT/HCPCS: 36415; 71045; 81025; 99284

== ENCOUNTER 2022-02-10 15:36 | Emergency (ER) | payer MEDICAID ==
[~2022-02-10] VITALS: Ht 170.2 cm; Wt 97.5 kg
[~2022-02-10 15:36] MED LIST changes: +ALBU2.5V7 INH; +BENZ100C92 PO; +MED4 PO
[2022-02-10 15:45] VITALS: BP_SYST 126
--- NOTE | 2022-02-10 16:00 | NUR ---
Placed in room H1 . Placed on monitor technician, blood pressure machine and pulse oximeter. To gown for exam. Side rails up.
[2022-02-10] MEDS ORDERED: KETOROLAC TROMETHAMINE 30 MG VIAL IM ONE (16:15)
[2022-02-10] MEDS ORDERED: ONDANSETRON 4 MG ODT TAB ONE ×2 (19:38→19:42)
[2022-02-10] MEDS ORDERED: KETOROLAC TROMETHAMINE 30 MG VIAL ONE (19:38)
[2022-02-10] MEDS ORDERED: guaiFENesin/DEXTROMETHORPHAN 10 ML UDC ONE (19:38)
[2022-02-10] MEDS: guaiFENesin/DEXTROMETHORPHAN 10 ML UDC PO ONE ×2 (19:40→19:50)
[2022-02-10] MEDS ORDERED: ONDANSETRON 4 MG ODT TAB PO ONE (19:45)
[2022-02-10] MEDS ORDERED: SULF1TAB48 PO (20:22)
[2022-02-10] MEDS ORDERED: IBUP-1971 PO (20:22)
[2022-02-10] MEDS ORDERED: ONDA-8 TL (20:22)
--- NOTE | 2022-02-10 21:50 | NUR ---
1553 hrs- seen and evaluated by SMITH PEREZ at this time
[2022-02-10 21:53] VITALS: BP_SYST 124
--- NOTE | 2022-02-10 21:53 | NUR ---
Patient given written and verbal discharge instructions and verbalizes understanding. ER MD discussed with patient the results and treatment provided. Patient in stable condition. ID arm band removed. Rx of Bactrim, Zofran ODT and Ibuprofen sent to pharmacy of choice Patient educated on pain management and to follow up with PMD. Pain Scale 2/10. Opportunity for questions provided and answered.
== END 2022-02-10 21:53 | disposition home or self-care (01) ==
LOC: SED 15:36
DX: K52.9 Noninfective gastroenteritis and colitis, unspecified (principal); R42 Dizziness and giddiness; R10.31 Right lower quadrant pain; R05.9 Cough, unspecified; R11.0 Nausea; I11.0 Hypertensive heart disease with heart failure; I50.9 Heart failure, unspecified; Z88.1 Allergy status to other antibiotic agents; Z88.5 Allergy status to narcotic agent; Z79.899 Other long term (current) drug therapy; Z20.822 Contact with and (suspected) exposure to COVID-19
CPT/HCPCS: 99285; 74176; 71045; 87426; 36415; 76376; 96372; 87804 ×2; Q0162; J1885

== ENCOUNTER 2022-06-17 17:48 | Emergency (ER) | payer MEDICAID ==
[~2022-06-17] VITALS: Ht 170.2 cm; Wt 97.5 kg
[~2022-06-17 17:48] MED LIST changes: +DILT30TA35 PO; -DILT30TA36 PO; +SULF1TAB48 PO
[2022-06-17 18:06] VITALS: BP_SYST 141
--- NOTE | 2022-06-17 18:16 | NUR ---
BIB self, RLQ pain x 6 months, Hx Colitis and Ovarian Cysts. Patient is AOx4 in no acute distress and or discomfort.
--- NOTE | 2022-06-17 18:40 | NUR ---
Patient taken for CT
[2022-06-17 18:46] LABS: BASOPHILS # (AUTO) 0.1 K/uL (0.0-0.2); BASOPHILS % (AUTO) 0.8 % (0.0-2.0); EOSINOPHILS # (AUTO) 0.1 K/uL (0.0-0.4); EOSINOPHILS % (AUTO) 1.1 % (0.0-4.0); HEMATOCRIT 36.2 % (36-48); HEMOGLOBIN 12.2 g/dL (12.0-16.0); LYMPHOCYTES # (AUTO) 2.8 K/uL (1.0-5.5); LYMPHOCYTES % (AUTO) 24.3 % (20.5-51.5); MEAN CORPUSCULAR HEMOGLOBIN 30 pg (27-31); MEAN CORPUSCULAR HGB CONC 34 % (32-36); MEAN CORPUSCULAR VOLUME 89 fL (79.0-98.0); MONOCYTES # (AUTO) 0.7 K/uL (0.0-1.0); MONOCYTES % (AUTO) 6.2 % (1.7-9.3); NEUTROPHILS # (AUTO) 7.9 K/uL (1.8-7.7); NEUTROPHILS % (AUTO) 67.6 % (40.0-70.0); PLATELET COUNT (AUTO) 269 K/uL (130-430); RED BLOOD CELL COUNT(AUTO) 4.09 MIL/uL (4.2-6.2); RED CELL DISTRIBUTION WIDTH 12.4 % (9.0-15.0); WHITE BLOOD COUNT (AUTO) 11.6 K/uL (4.8-10.8)
--- NOTE | 2022-06-17 18:55 | NUR ---
Patient returned from CT
--- NOTE | 2022-06-17 19:10 | NUR ---
REPORT RECIEVED FROM RAEANN RN, PT NAD, URINE COLLECTED AND SENT TO LAB. EVEN UNLABORED RESPIRATIONS BED LOWEST POSITION. PT IS AMBULATORY STEADY GAIT. NO COMPLAINTS FROM PT BESIDES NAUSEA.
[2022-06-17 19:11] LABS: CALCIUM 8.2 mg/dL (8.4-11.0); CREATININE 0.85 mg/dL (0.55-1.30)
[2022-06-17 19:15] LABS: ALBUMIN 3.6 g/dL (3.4-4.8); C-REACTIVE PROTEIN QUANT 0.3 mg/dL (0-0.5); TOTAL BILIRUBIN 0.4 mg/dL (0.0-1.0)
[2022-06-17] MEDS ORDERED: ONDANSETRON 4 MG ODT TAB PO ONE (19:30)
[2022-06-17] MEDS ORDERED: IBUP-1969 PO (20:03)
[2022-06-17] MEDS ORDERED: TRAM50TA2 PO (20:03)
[2022-06-17 20:15] VITALS: BP_SYST 152
--- NOTE | 2022-06-17 20:22 | NUR ---
Patient given written and verbal discharge instructions and verbalizes understanding. ER MD discussed with patient the results and treatment provided. Patient in stable condition. ID arm band removed. Rx of IBUPROFEN given. Patient educated on pain management and to follow up with PMD. Opportunity for questions provided and answered. Medication side effect fact sheet provided.
[2022-06-17 21:12] LABS: BILIRUBIN,URINE NEGATIVE (NEGATIVE); BLOOD, URINE 3+ (NEGATIVE); CLARITY/URINE SL CLOUDY (CLEAR); COLOR,URINE YELLOW (YELLOW); GLUCOSE,URINE NEGATIVE (NEGATIVE); KETONES,URINE TRACE (NEGATIVE); LEUKOCYTE ESTERASE ,URINE NEGATIVE (NEGATIVE); NITRITE, URINE NEGATIVE (NEGATIVE); PH,URINE 5.5 (5.0-8.0); PROTEIN URINE 1+ (NEGATIVE); UROBILINOGEN,URINE 0.2 (0.2-1.0)
[2022-06-17 21:20] LABS: BACTERIA,URINE FEW /HPF (None Seen); WBC,URINE 0-3 /HPF (0-3)
== END 2022-06-17 20:15 | disposition home or self-care (01) ==
LOC: SED 17:48
DX: R10.31 Right lower quadrant pain (principal); I10 Essential (primary) hypertension; Z88.1 Allergy status to other antibiotic agents; Z88.5 Allergy status to narcotic agent; Z79.899 Other long term (current) drug therapy
CPT/HCPCS: 99284; 74176; 80053; 81000; 82150; 84703; 83690; 85025; 86140; 36415; 76376; Q0162

== ENCOUNTER 2022-08-01 15:35 | Emergency (ER) | payer MEDICAID ==
[~2022-08-01] VITALS: Ht 170.2 cm; Wt 97.5 kg
[2022-08-01 15:51] VITALS: BP_SYST 139
[2022-08-01] MEDS ORDERED: KETOROLAC TROMETHAMINE 60 MG/2 ML VIAL IM ONE (16:00)
[2022-08-01] MEDS ORDERED: ONDANSETRON 4 MG ODT TAB PO ONE (16:00)
[2022-08-01 16:28] LABS: ACETONE, SERUM NEGATIVE (NEGATIVE); BASOPHILS # (AUTO) 0.1 K/uL (0.0-0.2); BASOPHILS % (AUTO) 0.6 % (0.0-2.0); EOSINOPHILS # (AUTO) 0.1 K/uL (0.0-0.4); EOSINOPHILS % (AUTO) 0.9 % (0.0-4.0); HEMOGLOBIN 12.6 g/dL (12.0-16.0); LYMPHOCYTES # (AUTO) 2.1 K/uL (1.0-5.5); LYMPHOCYTES % (AUTO) 15.8 % (20.5-51.5); MEAN CORPUSCULAR HEMOGLOBIN 30 pg (27-31); MEAN CORPUSCULAR HGB CONC 33 % (32-36); MEAN CORPUSCULAR VOLUME 89 fL (79.0-98.0); MONOCYTES # (AUTO) 0.6 K/uL (0.0-1.0); MONOCYTES % (AUTO) 4.5 % (1.7-9.3); NEUTROPHILS # (AUTO) 10.2 K/uL (1.8-7.7); NEUTROPHILS % (AUTO) 78.2 % (40.0-70.0); PLATELET COUNT (AUTO) 293 K/uL (130-430); RED BLOOD CELL COUNT(AUTO) 4.25 MIL/uL (4.2-6.2); RED CELL DISTRIBUTION WIDTH 12.6 % (9.0-15.0)
[2022-08-01 16:33] LABS: ANION GAP 7 (5-15); CALCIUM 8.7 mg/dL (8.4-11.0); CHLORIDE 103 mmol/L (98-107); CREATININE 1.06 mg/dL (0.55-1.30); GFR AFRICAN AMERICAN 73 mL/min (>90); GLUCOSE 118 mg/dL (70-99); UREA NITROGEN, BLOOD 12 mg/dL (8-21)
[2022-08-01 16:43] LABS: ALANINE AMINOTRANSFERASE 20 U/L (12-78); ALBUMIN 3.7 g/dL (3.4-4.8); AMYLASE 52 U/L (0-100); ASPARTATE AMINOTRANSFERASE 13 U/L (10-37); C-REACTIVE PROTEIN QUANT 0.3 mg/dL (0-0.5); LACTATE DEHYDROGENASE 147 U/L (81-234); LIPASE 126 U/L (73-393); TOTAL BILIRUBIN 0.5 mg/dL (0.0-1.0)
[2022-08-01] MEDS ORDERED: IBUP-1969 PO (17:53)
[2022-08-01] MEDS ORDERED: ONDA-8 TL (17:53)
[2022-08-01 18:14] VITALS: BP_SYST 137
== END 2022-08-01 18:13 | disposition home or self-care (01) ==
LOC: SED 15:35
DX: R10.30 Lower abdominal pain, unspecified (principal); R11.10 Vomiting, unspecified; R19.7 Diarrhea, unspecified; I10 Essential (primary) hypertension; Z88.1 Allergy status to other antibiotic agents; Z88.5 Allergy status to narcotic agent; Z79.899 Other long term (current) drug therapy
CPT/HCPCS: 99285; 74176; 80053; 82009; 82150; 84703; 83615; 83690; 85025; 86140; 36415; 76376; 96372; 83605; Q0162; J1885

== ENCOUNTER 2022-12-04 14:40 | Emergency (ER) | payer MEDICAID ==
[~2022-12-04] VITALS: Ht 170.2 cm; Wt 99.8 kg
[2022-12-04 14:45] VITALS: BP_SYST 145; PULSE 86; RESP 17; TEMP 97.8; O2SAT 97
[2022-12-04] MEDS ORDERED: IBUP-1971 PO (16:35)
[2022-12-04] MEDS ORDERED: IBUPROFEN 800 MG TABLET PO ONE (16:45)
[2022-12-04 17:04] VITALS: BP_SYST 145; PULSE 86; RESP 17; TEMP 97.8; O2SAT 97
== END 2022-12-04 17:08 | disposition home or self-care (01) ==
LOC: SED 14:40
DX: S63.621A Sprain of interphalangeal joint of right thumb, initial encounter (principal); I10 Essential (primary) hypertension; Z88.5 Allergy status to narcotic agent; Z79.899 Other long term (current) drug therapy; X58.XXXA Exposure to other specified factors, initial encounter; Y93.89 Activity, other specified; Y92.89 Other specified places as the place of occurrence of the external cause; Y99.8 Other external cause status
CPT/HCPCS: 73140-TC; 99283

== ENCOUNTER 2023-01-31 16:11 | Emergency (ER) | payer MEDICAID ==
[~2023-01-31] VITALS: Ht 170.2 cm; Wt 99.8 kg
[2023-01-31 16:17] VITALS: BP_SYST 139; PULSE 73; RESP 20; TEMP 97.8; O2SAT 96
== END 2023-01-31 18:20 | disposition left against medical advice (07) ==
LOC: SED 16:11
DX: J02.9 Acute pharyngitis, unspecified (principal); R05.9 Cough, unspecified; R06.02 Shortness of breath; Z53.21 Procedure and treatment not carried out due to patient leaving prior to being seen by health care provider
CPT/HCPCS: 99281